=== PATIENT | female | born 1960 | race Caucasian/White ===

== ENCOUNTER → 2017-08-01 | Outpatient (CLI) | payer OTHER ==
--- NOTE | 2017-08-01 12:11 | MM ---
Reason for exam: clinical finding. Last mammogram was performed 4 years and 3 months ago. History: Patient had first child at age 39. Indicated problem(s): pain in the left breast. Physical Findings: Nurse did not find any significant physical abnormalities on exam. MG 3D Diag Mammo W/Cad TANYA Bilateral CC and MLO view(s) were taken. LM view(s) were taken of the left breast. Prior study comparison: May 16, 2013, bilateral digital screening mammo w/CAD. December 21, 2011, bilateral digital screening mammo w/CAD. The breast tissue is heterogeneously dense. This may lower the sensitivity of mammography. Focal asymmetry right posterior upper outer quadrant appears similar on the CC view but slightly more pronounced on MLO view. On spot views, the area partially disperses. Dense tissue is suspected. Ultrasound recommended. These results were verbally communicated with the patient and result sheet given to the patient on 08/01/17. ASSESSMENT: Incomplete: need additional imaging evaluation, BI-RAD 0 RECOMMENDATION: Ultrasound of the right breast. (upper outer quadrant)
--- NOTE | 2017-08-01 12:13 | USB ---
Reason for exam: additional evaluation requested from abnormal screening. History: Patient had first child at age 39. US Breast Limited RT Right breast ultrasound demonstrates no cystic or solid lesion seen. Precautionary 6 month follow up mammogram recommended. These results were verbally communicated with the patient and result sheet given to the patient on 08/01/17. ASSESSMENT: Probably benign, BI-RAD 3 RECOMMENDATION: Follow-up diagnostic mammogram of the right breast in 6 months. Manage on a clinical basis with regard to left arm pain.
== END ==
LOC: RADMAMWWP 10:15
PROVIDERS: ATTEND Obstetrics & Gynecology
DX: R92.8 Other abnormal and inconclusive findings on diagnostic imaging of breast (principal); N64.4 Mastodynia
CPT/HCPCS: 77066; 76642; G0279

== ENCOUNTER → 2018-08-27 | Outpatient (CLI) | payer OTHER, MEDICARE ==
--- NOTE | 2018-08-27 11:10 | XR ---
EXAMINATION TYPE: XR chest 2V DATE OF EXAM: 08/27/2018 COMPARISON: NONE HISTORY: Shortness of breath TECHNIQUE: Frontal and lateral views of the chest are obtained. FINDINGS: Scattered senescent parenchymal changes noted. Hyperinflation compatible with COPD. No evidence for infiltrate. No evidence for atelectasis. Heart size is stable. Mediastinal structures are stable and grossly unremarkable. No evidence for hilar prominence. Degenerative changes dorsal spine. IMPRESSION: 1. No evidence for acute pulmonary disease.
--- NOTE | 2018-08-27 11:11 | XR ---
EXAMINATION TYPE: XR shoulder complete RT DATE OF EXAM: 08/27/2018 CLINICAL HISTORY: pain TECHNIQUE: Three views of the right shoulder are obtained. COMPARISON: None FINDINGS: There is no acute fracture/dislocation evident. The acromioclavicular and glenohumeral jelani int spaces appear within normal limits. The visualized ribs are intact and unremarkable. IMPRESSION: 1. There is no acute fracture or dislocation. ICD 10 NO FRACTURE, INITIAL EVALUATION
== END | disposition home or self-care (01) ==
LOC: RADXRMAIN 10:42
PROVIDERS: ATTEND Family Medicine
DX: R05 Cough (principal); M25.511 Pain in right shoulder
CPT/HCPCS: 71046

== ENCOUNTER → 2020-05-07 | Outpatient (CLI) | payer MEDICARE, OTHER ==
--- NOTE | 2020-05-07 12:38 | MR ---
EXAMINATION TYPE: MR shoulder RT wo con DATE OF EXAM: 05/07/2020 COMPARISON: Outside right shoulder x-ray April 09, 2020 HISTORY: Rt shoulder pain TECHNIQUE: Multiplanar, multisequence imaging of the right shoulder is performed without contrast. FINDINGS: Rotator Cuff: Complete full-thickness retracted tear distal supraspinatus tendon to level of acromioc lavicular joint coronal image 14. Complete full thickness retracted tear of the infraspinatus tendon to level of the distal clavicle, coronal image 19. Subscapularis tendon felt intact with abnormal inc reased signal and surrounding fluid axial image 13 for reference, abnormal thickening is present. The re is severe fat replaced atrophy of the supraspinatus and infraspinatus tendons. . Complete full-th ickness retracted tear of the teres minor is felt present. Moderate to severe muscular atrophy. Acromioclavicular Joint: Moderate narrowing and capsular hypertrophy, loss of inferior fat plane at d istal clavicle level. Distal acromion morphology unremarkable Glenohumeral Joint: High riding humeral head with moderate medial narrowing. Small spurs medially cor onal image 12. Small to moderate-sized joint effusion. Labrum: The superior labrum is blunted with abnormal signal, degenerative tear is present. Biceps Tendon: The long head of biceps is in normal location within bicipital groove. Intracapsular p ortion not well seen. Bone marrow signal: Some focal edema in the acromion. Other: No additional significant abnormality is appreciated. IMPRESSION: Complete full-thickness retracted tears of the supraspinatus and infraspinatus and teres minor tendons with moderate to severe muscular atrophy suggesting chronic in age. High riding humeral head noted. Other findings as detailed above.
== END | disposition home or self-care (01) ==
LOC: RADMRIMAIN 11:01
PROVIDERS: ATTEND Orthopaedic Surgery
DX: M75.121 Complete rotator cuff tear or rupture of right shoulder, not specified as traumatic (principal); M25.811 Other specified joint disorders, right shoulder; M62.511 Muscle wasting and atrophy, not elsewhere classified, right shoulder; M89.311 Hypertrophy of bone, right shoulder; M25.711 Osteophyte, right shoulder; M25.411 Effusion, right shoulder; R93.7 Abnormal findings on diagnostic imaging of other parts of musculoskeletal system

== ENCOUNTER → 2020-06-12 | Outpatient (CLI) | payer MEDICARE, OTHER ==
--- NOTE | 2020-06-16 09:19 | MM ---
Reason for exam: screening (asymptomatic). Last mammogram was performed 2 years and 10 months ago. History: Patient is postmenopausal and had first child at age 39. Physical Findings: A clinical breast exam by your physician is recommended on an annual basis and results should be correlated with mammographic findings. MG 3D Screening Mammo W/Cad Bilateral CC and MLO view(s) were taken. Prior study comparison: August 01, 2017, bilateral MG 3d diag mammo w/cad TANYA. May 16, 2013, bilateral digital screening mammo w/CAD. The breast tissue is heterogeneously dense. This may lower the sensitivity of mammography. No significant changes when compared with prior studies. ASSESSMENT: Benign, BI-RAD 2 RECOMMENDATION: Routine screening mammogram of both breasts in 1 year.
== END | disposition home or self-care (01) ==
LOC: RADMAMWWP 13:33
PROVIDERS: ATTEND Family Medicine
DX: Z12.31 Encounter for screening mammogram for malignant neoplasm of breast (principal)
CPT/HCPCS: 77063; 77067

== ENCOUNTER → 2020-09-17 | Outpatient (CLI) | payer MEDICARE, OTHER ==
--- NOTE | 2020-09-17 19:48 | CT ---
EXAMINATION TYPE: CT brain wo con DATE OF EXAM: 09/17/2020 HISTORY: syncope, dizziness, falls CT DLP: 1107.20 mGycm. Automated Exposure Control for Dose Reduction was Utilized. TECHNIQUE: CT scan of the head is performed without contrast. COMPARISON: CT brain September 07, 2015. FINDINGS: There is no acute intracranial hemorrhage or midline shift identified. There is mild diff use ventricular and sulcal prominence consistent with diffuse age-related cerebral atrophy. There is mild low-attenuation in the periventricular white matter consistent with chronic small vessel ischem ic change. No suspicious opacification of mastoid air cells. Nasal septum remains deviated to right of midline. The globes are intact and the visualized sinuses are clear. IMPRESSION: No acute intracranial hemorrhage or midline shift. There is mild diffuse age-related ce rebral atrophy and chronic small vessel ischemic change now identified. Interval degenerative progres skye from prior CT.
== END | disposition home or self-care (01) ==
LOC: RADCTMAIN 18:19
PROVIDERS: ATTEND Family Medicine
DX: G31.9 Degenerative disease of nervous system, unspecified (principal); I67.82 Cerebral ischemia
CPT/HCPCS: 70450

== ENCOUNTER → 2020-10-01 | Outpatient (CLI) | payer MEDICARE, OTHER ==
--- NOTE | 2020-10-01 16:24 | US ---
EXAMINATION TYPE: US carotid duplex BILAT DATE OF EXAM: 10/01/2020 COMPARISON: NONE CLINICAL HISTORY: R29.6 Repeated Falls. EXAM MEASUREMENTS: RIGHT: Peak Systolic Velocity (PSV) cm/sec ----- Right CCA: 86.6 ----- Right ICA: 62.2 ----- Right ECA: 97.8 ICA/CCA ratio: 0.7 RIGHT: End Diastole cm/sec ----- Right CCA: 27.0 ----- Right ICA: 17.1 ----- Right ECA: 17.6 LEFT: Peak Systolic Velocity (PSV) cm/sec ----- Left CCA: 53.7 ----- Left ICA: 74.9 ----- Left ECA: 232.4 ICA/CCA ratio: 1.4 LEFT: End Diastole cm/sec ----- Left CCA: 12.0 ----- Left ICA: 16.7 ----- Left ECA: 28.8 VERTEBRALS (direction of flow): Right Vertebral: Antegrade Left Vertebral: Antegrade Rhythm: Normal Moderate amount of plaque visualized bilateral bulbs. Elevated velocities visualized left ECA IMPRESSION: 1. Atheromatous plaquing without significant flow-limiting stenosis within the internal carotid arter ies. 2. There is some notable stenosis within the left external carotid artery due to plaquing. Criteria for Assigning % of Stenosis / Diameter reduction (Estimation based on the indirect measurements of the internal carotid artery velocities (ICA PSV). 1. Normal (no stenosis)=ICA PSV < 125 cm/s: ratio < 2.0: ICA EDV<40 cm/s. 2. Less than 50% stenosis=ICA PSV < 125 cm/s: ratio < 2.0: ICA EDV<40 cm/s. 3. 50 to 69% stenosis=ICA PSV of 125 to 230 cm/s: ration 2.0 ? 4.0: ICA EDV 40-100 cm/s. 4. Greater than 70% stenosis to near occlusion= ICA PSV > 230 cm/s: ratio > 4.0: ICA EDV > 100 cm/s. 5. Near occlusion= ICA PSV velocities may be low or undetectable: variable ratio and ICA EDV. 6. Total occlusion=unable to detect flow.
== END | disposition home or self-care (01) ==
LOC: RADUSWWP 14:52
PROVIDERS: ATTEND Family Medicine
DX: I65.23 Occlusion and stenosis of bilateral carotid arteries (principal)
CPT/HCPCS: 93880

== ENCOUNTER → 2022-03-30 | Outpatient (CLI) | payer MEDICARE, OTHER ==
--- NOTE | 2022-03-30 12:07 | MR ---
EXAMINATION TYPE: MR lumbar spine wo con DATE OF EXAM: 03/30/2022 11:56 AM COMPARISON: None. CLINICAL INDICATION:Female, 61 years old with history of R54.15 lumbar radiculopathy; TECHNIQUE: Multi planar, multi sequence imaging was performed utilizing: T1-weighted, T2-weighted, a nd turbo inversion recovery imaging of the lumbar spine. IV Contrast: None. FINDINGS: Alignment: The lumbar vertebral bodies have preserved heights and alignment. Cord: The conus medullaris and the distal spinal cord appear unremarkable with regards to their signa l intensity and morphology. Bones/Discs: High T2/T1 signal vertebral body lesion in T12 lesion likely representing vertebral body hemangioma. Modic endplate changes most pronounced at L5-S1. Disc desiccation most pronounced at L5- S1. L1-L2: No evidence of significant spinal canal stenosis. Facet joint arthropathy moderate bilateral n eural foraminal stenosis. L2-L3: No evidence of significant spinal canal stenosis. Facet joint arthropathy moderate bilateral n eural foraminal stenosis. L3-L4: No evidence of significant spinal canal stenosis. Facet joint arthropathy moderate bilateral n eural foraminal stenosis. L4-L5: Disc bulge and facet joint arthropathy result in moderate to severe spinal canal and moderate to severe bilateral neural foraminal stenosis. L5-S1: Disc bulge and facet joint arthropathy result in mild spinal canal and moderate to severe bila teral neural foraminal stenosis. Other findings: None. IMPRESSION: 1. L4-L5 moderate to severe spinal canal stenosis secondary to combination disc bulging and facet ar thropathy. 2. L4-L5 and L5-S1 moderate to severe bilateral neural foraminal stenosis secondary to facet joint ar thropathy. 3. Multilevel disc degeneration with associated osteoarthritic changes,
== END | disposition home or self-care (01) ==
LOC: RADMRIMAIN 11:13
PROVIDERS: ATTEND Family Medicine
DX: M48.061 Spinal stenosis, lumbar region without neurogenic claudication (principal); M51.36 Other intervertebral disc degeneration, lumbar region; M47.27 Other spondylosis with radiculopathy, lumbosacral region
CPT/HCPCS: 72148

== ENCOUNTER → 2022-04-11 | Outpatient (CLI) | payer MEDICARE, OTHER ==
[2022-04-11 10:05] VITALS: BP 111/57; PULSE 83; RESP 14; TEMP 98.2
--- NOTE | 2022-04-11 15:00 | P.PAINPG ---
PQRS Measure Charge Sheet Comment: HISTORY OF PRESENT ILLNESS: 61 yr old female as a referral from Dr Jones presents today w severe and chronic LBP secondary to disc bulges, spinal stenosis and facet arthropathy without myelopathy for evaluation. Pt states pain level is at 9 /10 in intensity, constant, localized in the right aspect of the lumbar spine where it meets the tailbone, achy in character w shooting pain towards right include. Pain is provoked by twisting, bending, lifting. Pain is alleviated by medications (Corona 7.5/325, Lyrica 200 mg, Cymbalta 20 mg, Celebrex 200 mg), topicals, PT which she is currently in, chiropractic treatments in January 2022 without relief, massage therapy in January 2022 without relief, repositioning and rest. PMH: MDD, HTN, CTS PSH: L Bimalleolar ORIF (2016), Section, Cholecystectomy, Carpal Tunnel Release SH: Daily tobacco use, Occasional ETOH use, No illicit drug use FH: Non contributory All: NKDA Meds: See list REVIEW OF ORGAN SYSTEMS: CONSTITUTIONAL: No fevers or chills. No recent weight loss. NEUROLOGICAL: + numbness and tingling along the distal extremities. No seizure disorders or headaches. MUSCULOSKELETAL: + pain PSYCHIATRIC: Denies current depression or suicidal thoughts. Physical Examinations : Constitutional : Cooperative , not in acute distress . Neurologic : Cranial nerve II to XII intact. No focal neurological deficits. Psychiatric : alert & oriented x 3. Matching mood & appropriate affect. Judgment & insight intact. Musculoskeletal : Cervical Spine Motor strength in the deltoid and biceps: Normal right side. Normal Left side Motor strength biceps and the wrist extensors: Normal right side . Normal left side Motor strength in the triceps muscle: Normal right side. Normal left side Deep tendon reflexes: Normal at the biceps. Normal at Brachioradialis. Normal at triceps Vertebral body tenderness to deep palpation over Cervical facet loading test: positive bilaterally Spurling test: positive bilaterally Neck distraction test: positive bilaterally Ulices sign: positive bilaterally Lumbar spine Motor strength lower extremities ,thigh and legs 5/5 Right side , 5/5 Left side Deep tendon reflexes : Normal Knee Jerk. Normal Ankle Jerk Vertebral body tenderness over L5 Lumbar facet Loading Test: positive Right / positive Left Range of motion of the lumbar spine Flexion 30 degrees, extension 10 degrees Straight Leg Raise test: Left/ Right positive at degree Holly test: positive right / positive left. Severe tenderness over the Sacroiliac joint on the Right / Left sides Gaenslen test: positive bilaterally Seated flexion test: positive bilaterally. Sacral spine : Severe tenderness over the Sacroiliac joint: right side / left side Range of motion: Flexion of the lumbar spine <60 degrees Range of motion: Extension of the lumbar spine <20 degrees Gaenslen's Test positive Henry's Test positive Holly test: positive right side / left side Thigh Thrust Test Sacral Thrust Test Imaging: MRI without contrast of the lumbar spine from 03/30/22 reviewed Assessment/ Plan : Lumbar disc bulges, lumbar spinal stenosis Recommendation of VIVIAN L5-S1. And a series of injections, up to 3 within a six- month period, for optimal pain relief. Risks, benefits of procedure discussed and patient verbalized understanding. Admits to aspirin or anti- coagulant use or medical history of diabetes. Protocol for discontinuation/ continuation of medications shane procedure discussed. All questions answered. I have spent greater than 30 minutes on patient care today. Dr Augustin was available by phone for the evaluation of this patient. The time was used to review the medical records including relevant urine studies and Prescription history (MAPs), review of the available imaging, evaluation and examination of the patient, coordination of care with the medical staff and if applicable referring physicians, as well as creation of the medical record PQRS Narrative: Smoking Status Current every day smoker Home Medications: Ambulatory Orders HYDROcodone/APAP 7.5-325MG [Corona 7.5-325] 1 tab PO Q6H PRN 02/03/16 Aspirin 325 mg PO DAILY #30 tab 02/05/16 Docusate [Colace] 100 mg PO BID #60 capsule 02/05/16 HYDROcodone/APAP 7.5-325MG [Corona 7.5-325] 1 - 2 tab PO Q6HR PRN #60 tab 02/05/16 Celecoxib [CeleBREX] 200 mg PO DAILY 04/11/22 DULoxetine HCL 20 mg PO DAILY 04/11/22 Pregabalin 200 mg PO BID 04/11/22 lisinopriL [Zestril] 5 mg PO DAILY 04/11/22 Controlled Substance Measures - Controlled Substance Measures Is patient prescribed a controlled substance at discharge?: No
== END ==
LOC: PNWHC3 09:34
PROVIDERS: ATTEND Specialist
DX: M48.061 Spinal stenosis, lumbar region without neurogenic claudication (principal); M51.26 Other intervertebral disc displacement, lumbar region; Z79.82 Long term (current) use of aspirin; F17.200 Nicotine dependence, unspecified, uncomplicated
CPT/HCPCS: 99211

== ENCOUNTER → 2022-06-28 | Outpatient (CLI) | payer MEDICARE, OTHER | END | disposition home or self-care (01) | LOC: LABWHC1 13:12 | PROVIDERS: ATTEND Urology | DX: Z53.9 Procedure and treatment not carried out, unspecified reason (principal) ==

== ENCOUNTER 2022-07-05 11:45 | Day surgery (SDC) | payer MEDICARE, OTHER ==
[2022-07-05 12:15] VITALS: TEMP 96.7
[2022-07-05] MEDS ORDERED: LACTATED RINGERS 1,000 ML IV ONE (12:28)
[2022-07-05] MEDS ORDERED: ROPIVACAINE 5 MG/ML 20 ML AMPULE ONE (12:56)
[2022-07-05] MEDS ORDERED: MIDAZOLAM 2 MG/2 ML VIAL ONE (12:56)
[2022-07-05] MEDS ORDERED: methylPREDNISolone ACETATE 40 MG/ML 1 ML VIAL ONE (12:56)
[2022-07-05] MEDS ORDERED: fentaNYL (PF) 50 MCG/ML 2 ML AMP ONE (12:56)
--- NOTE | 2022-07-05 13:17 | P.PCN ---
Date of Procedure: 07/05/22 Procedure(s) Performed: PREOPERATIVE DIAGNOSIS : 1- Lumbar spondylosis with Facet Arthropathy without myelopathy . 2- Lumb Sedation is supposed at 13 or 2er degenerative disc disease POSTOPERATIVE DIAGNOSIS: 1- Lumbar spondylosis with Facet Arthropathy without myelopathy . 2- Lumber degenerative disc disease PROCEDURE: Diagnostic bilateral L3 , L4 , and L5 medial branch block under fluoroscopy guidance(fluoroscopy images available in the radiology Department ) ( To target the facet joint between bilateral L4-5 , and L5-S1 ) ANESTHESIA:,moderate sedation with intravenous Versed 2 mg and Fentanyl 50 mcg., sedation start at 1302 , end at 1314 EBL: Minimal COMPLICATION: None PROCEDURE INDICATION: Chronic low back pain secondary to Facet arthropathy unresponsive to conservative treatment. PROCEDURE DESCRIPTION: the patient was seen and identified in the preop holding area , risks and benefits and possible complications of the procedure and alternative were discussed with the patient, and the patient agreed to proceed with the procedure and signed the consent and vital signs monitored during the procedure and fluoroscopy was used to maximize the benefit and accuracy of the needle placement, and sedation was given to decrease patient anxiety, patient was taken to the procedure room and placed in prone position vital signs monitored in the back prepped with chlorhexidine X3 then under strict sterile technique using a right oblique fluoroscopy ,the junction of the transverse process and the superior articulating process of the right L3 , L4 , and L5 vertebra which corresponding to the fluoroscopy image of the eye of the [place] dog on the block side for the medial branches and subsequently , after local infiltration of skin and subcu tissuies with Ropivacaine 0.5 % , one mL at each level ,then 22-gauge Quincke-type needles , 3 needle was used , each one of them placed at the junction of the base of the transverse process and the superior articular process at the appropriate level, and the needle was advanced until the periosteum contacted, needle placement confirmed with AP oblique and lateral view and after appropriate needle placement confirmed, and after negative aspiration for heme and CSF and there was no paresthesia 1-1/2 mL of Ropivacaine 0.5% mixed with 20 mg Depo-Medrol , then half mL injected at each level after negative aspiration the needle subsequently removed and the same procedure repeated for the left side at left side at L3 , L4 and L5 levels. At the end of the procedure and the needles removed and a bandage applied after the skin was cleaned the cleaning solution patient taken to recovery room in stable condition and monitors in the recovery room for 20-30 minutes and discharged home in stable condition after discharge criteria met and patient will follow up with the pain clinic in 2-4 weeks
[2022-07-05] MEDS ORDERED: IV FLUID CONTINUATION 750 ML IV ONE (13:20)
--- NOTE | 2022-07-05 13:30 | FL ---
Intraoperative/procedural fluoroscopic services were provided for bilateral lumbar facet block. Total fluoroscopy time is 10 seconds with a total of 4 submitted images to PACS. Total DAP [id number]. Please see the operative note for further details.
[2022-07-05 13:32] VITALS: RESP 16
[2022-07-05 13:49] VITALS: BP 149/74; PULSE 81
== END 2022-07-05 13:59 | disposition home or self-care (01) ==
LOC: ORPAIN 11:45
PROVIDERS: ATTEND Specialist
DX: M51.36 Other intervertebral disc degeneration, lumbar region (principal); M47.816 Spondylosis without myelopathy or radiculopathy, lumbar region; G89.29 Other chronic pain
CPT/HCPCS: 99152; 64494 ×2; 64493; J2250; J1030; J3010; J2795

== ENCOUNTER → 2022-07-20 | Outpatient (CLI) | payer MEDICARE, OTHER ==
[2022-07-20 15:29] VITALS: BP 163/100; PULSE 85; RESP 18
--- NOTE | 2022-07-20 15:51 | P.PAINPG ---
PQRS Measure Charge Sheet Comment: A 62 yr old female with a history of severe and chronic LBP secondary to lumbar DDD and spondylosis with facet arthropathy without myelopathy presents today for evaluation s/p BL facet block of the medial branches L4- L5, L5-S1 #1. Pt states she experienced 80% pain relief x 2 hrs s/p procedure. Pain level is provoked at 9 /10 in intensity, constant, localized in the lumbar spine, sharp in character w shooting towards the R buttock and RLE. Pain is provoked by twisting, bending, lifting. Pain is alleviated by medications ([place]wood 7.5/325, Lyrica 200 mg, Cymbalta 20 mg, Celebrex 200 mg), topicals, PT x 12 wks from Mar 2022, injections, chiropractic treatments weekly in January 2022 without relief, massage therapy in January 2022 without relief, repositioning and rest. Interventional pain procedures completed include BL MBB L3-L5 x1, VIVIAN L5-S1 x1 Patient is currently on [place] 7.5/325, Lyrica 200 mg, Cymbalta 20 mg, Celebrex 200 mg Patient denies any side effects of the medication(s), denies excessive drowsiness or sleepiness, denies suicidal ideation and reports that the current pain medication is helping to control the pain and improve activities of daily living. Patient denies any motor or sensory deficits. Patient denies any fever or night sweats, denies any change in the bowel movements or urination. Physical Examination: -Constitutional: Cooperative. Not in acute distress . - Neurologic: Cranial nerve II to XII intact. No focal neurological deficits. - Psychatric: Alert & oriented x 3. Matching mood & appropriate affect. Judgment and insight intact. - Musculoskeletal: Cervical spine: Muscle bulk/ tone/ strength in the bilateral upper extremities normal Vertebral body tenderness to palpation over Spurling test positive Distraction test positive Facet loading test positive TTP Thoracic spine Muscle bulk / tone/ strength in the bilateral paraspinal muscles normal Vertebral body tender to palpation over Facet loading test positive TTP Lumbar spine: Motor bulk/ tone/ strength lower extremities , thigh and legs : 5/5 Deep tendon reflexes : Normal Knee Jerk. Normal Ankle Jerk . Vertebral body tenderness to palpation over Lumbar Facet Loading Test positive TTP over BL L4-L5, L5-S1 facets, R> L Straight Leg Raise: positive at 30 degrees right side/ left side Gaenslen's Test positive Sacral spine : Severe tenderness over the Sacroiliac joint: right side / left side Range of motion: Flexion of the lumbar spine <60 degrees Range of motion: Extension of the lumbar spine <20 degrees Gaenslen's Test positive right side / left side Holly test: positive right side / left side Thigh Thrust Test positive right side / left side Sacral Thrust Test positive right side / left side Assessment and plan: Chronic LBP secondary to lumbar DDD, spondylosis with facet arthropathy without myelopathy Recommendation of BL MBB L4-L5, L5-S1 #2. May need a series of injections, up until RFA, for optimal pain relief. Risks, benefits of procedure discussed and pt verbalized understanding. Admits to anticoagulant use or medical history of diabetes. Protocol for discontinuation/ continuation of medications shane procedure discussed. All questions answered. I have spent less than 30 minutes on patient care today. Dr Augustin was available by phone for the evaluation of this patient. The time was used to review the medical records including relevant urine studies and Prescription history (MAPs), review of the available imaging, evaluation and examination of the patient, coordination of care with the medical staff and if applicable referring physicians, as well as creation of the medical record PQRS Narrative: Smoking Status Current every day smoker Hx Alcohol Use (MH) No Home Medications: Ambulatory Orders Celecoxib [CeleBREX] 200 mg PO HS 04/11/22 DULoxetine HCL 60 mg PO QAM 04/11/22 Pregabalin 200 mg PO BID 04/11/22 lisinopriL [Zestril] 10 mg PO QAM 04/11/22 buPROPion HCL [buPROPion HCL SR] 100 mg PO BID 05/24/22 Controlled Substance Measures - Controlled Substance Measures Is patient prescribed a controlled substance at discharge?: No
== END ==
LOC: PNWHC3 14:17
PROVIDERS: ATTEND Specialist
DX: M51.36 Other intervertebral disc degeneration, lumbar region (principal); M47.816 Spondylosis without myelopathy or radiculopathy, lumbar region; G89.29 Other chronic pain; F17.200 Nicotine dependence, unspecified, uncomplicated
CPT/HCPCS: 99211

== ENCOUNTER 2022-08-16 11:15 | Day surgery (SDC) | payer MEDICARE, OTHER ==
[2022-08-10 15:28] VITALS: BMI 28.3
[~2022-08-16 11:15] MED LIST: LACTATED RINGERS 1,000 ML IV SCH; LIDOCAINE 1% (10MG/ML) FOR IV START INTRADERMA PRN
[2022-08-16 12:00] VITALS: TEMP 97
[2022-08-16] MEDS ORDERED: MIDAZOLAM 2 MG/2 ML VIAL ONE (12:48)
[2022-08-16] MEDS ORDERED: methylPREDNISolone ACETATE 40 MG/ML 1 ML VIAL ONE (12:48)
[2022-08-16] MEDS ORDERED: ROPIVACAINE 5 MG/ML 20 ML AMPULE ONE (12:48)
[2022-08-16] MEDS ORDERED: fentaNYL (PF) 50 MCG/ML 2 ML AMP ONE (12:48)
--- NOTE | 2022-08-16 13:03 | P.PCN ---
Date of Procedure: 08/16/22 Procedure(s) Performed: PREOPERATIVE DIAGNOSIS : 1- Lumbar spondylosis with Facet Arthropathy without myelopathy . 2- Lumb Sedation is supposed at 13 or 2er degenerative disc disease POSTOPERATIVE DIAGNOSIS: 1- Lumbar spondylosis with Facet Arthropathy without myelopathy . 2- Lumber degenerative disc disease PROCEDURE: Diagnostic bilateral L3 , L4 , and L5 medial branch block under fluoroscopy guidance(fluoroscopy images available in the radiology Department ) ( To target the facet joint between bilateral L4-5 , and L5-S1 )#2nd ANESTHESIA:,moderate sedation with intravenous Versed 2 mg and Fentanyl 50 mcg., sedation start at 1250 , end at 1302 EBL: Minimal COMPLICATION: None PROCEDURE INDICATION: Chronic low back pain secondary to Facet arthropathy unresponsive to conservative treatment. PROCEDURE DESCRIPTION: the patient was seen and identified in the preop holding area , risks and benefits and possible complications of the procedure and alternative were discussed with the patient, and the patient agreed to proceed with the procedure and signed the consent and vital signs monitored during the procedure and fluoroscopy was used to maximize the benefit and accuracy of the needle placement, and sedation was given to decrease patient anxiety, patient was taken to the procedure room and placed in prone position vital signs monitored in the back prepped with chlorhexidine X3 then under strict sterile technique using a right oblique fluoroscopy ,the junction of the transverse process and the superior articulating process of the right L3 , L4 , and L5 vertebra which corresponding to the fluoroscopy image of the eye of the Marino dog on the block side for the medial branches and subsequently , after local infiltration of skin and subcu tissuies with Ropivacaine 0.5 % , one mL at each level ,then 22-gauge Quincke-type needles , 3 needle was used , each one of them placed at the junction of the base of the transverse process and the superior articular process at the appropriate level, and the needle was advanced until the periosteum contacted, needle placement confirmed with AP oblique and lateral view and after appropriate needle placement confirmed, and after negative aspiration for heme and CSF and there was no paresthesia 1-1/2 mL of Ropivacaine 0.5% mixed with 20 mg Depo-Medrol , then half mL injected at each level after negative aspiration the needle subsequently removed and the same procedure repeated for the left side at left side at L3 , L4 and L5 levels. At the end of the procedure and the needles removed and a bandage applied after the skin was cleaned the cleaning solution patient taken to recovery room in stable condition and monitors in the recovery room for 20-30 minutes and discharged home in stable condition after discharge criteria met and patient will follow up with the pain clinic in 2-4 weeks
[2022-08-16] MEDS ORDERED: IV FLUID CONTINUATION 700 ML IV ONE (13:06)
[2022-08-16 13:11] VITALS: RESP 18
--- NOTE | 2022-08-16 13:15 | FL ---
Fluoroscopy History: Lumbar facet block FLUORO TIME 19 SEC. DAP [id number]
[2022-08-16 13:39] VITALS: BP 132/77; PULSE 88
== END 2022-08-16 13:41 | disposition home or self-care (01) ==
LOC: ORPAIN 11:15
PROVIDERS: ATTEND Specialist
DX: M47.816 Spondylosis without myelopathy or radiculopathy, lumbar region (principal); M51.36 Other intervertebral disc degeneration, lumbar region; G89.29 Other chronic pain
CPT/HCPCS: 64493; 64494; J2250; J1030; J3010; J2795

== ENCOUNTER → 2022-09-07 | Outpatient (CLI) | payer MEDICARE, OTHER ==
--- NOTE | 2022-09-07 15:04 | P.PAINPG ---
PQRS Measure Charge Sheet Comment: A 62 yr old female with a history of severe and chronic LBP x 1 yr secondary to lumbar DDD and spondylosis with facet arthropathy without myelopathy presents today for evaluation s/p BL facet block of the medial branches L4-L5, L5-S1 #2. Pt states she experienced 90 % pain relief x 3 hrs s/p procedure. Pain level is provoked at 8/10 in intensity, constant, localized in the lumbar spine, sharp in character w shooting towards the RLE. Pain is provoked by walking/ bending/ lifting for periods of 15 min or more. Pain is alleviated with PT x 8 wks in Jan 2022, chiropractic treatments semi monthly til Mar 2022 when she was discontinued treatments, heat, medications, topical, repositioning, sitting and rest. Interventional pain procedures completed include BL MBB L3-L5 x2 Patient is currently on [place] Patient denies any side effects of the medication(s), denies excessive drowsiness or sleepiness, denies suicidal ideation and reports that the current pain medication is helping to control the pain and improve activities of daily living. Patient denies any motor or sensory deficits. Patient denies any fever or night sweats, denies any change in the bowel movements or urination. Physical Examination: -Constitutional: Cooperative. Not in acute distress . - Neurologic: Cranial nerve II to XII intact. No focal neurological deficits. - Psychatric: Alert & oriented x 3. Matching mood & appropriate affect. Judgment and insight intact. - Musculoskeletal: Cervical spine: Muscle bulk/ tone/ strength in the bilateral upper extremities normal Vertebral body tenderness to palpation over Spurling test positive Distraction test positive Facet loading test positive TTP Thoracic spine Muscle bulk / tone/ strength in the bilateral paraspinal muscles normal Vertebral body tender to palpation over Facet loading test positive TTP Lumbar spine: Motor bulk/ tone/ strength lower extremities , thigh and legs : 5/5 Deep tendon reflexes : Normal Knee Jerk. Normal Ankle Jerk . Vertebral body tenderness to palpation over Ryan Test positive Lumbar Facet Loading Test positive on BL L4-L5, L5-S1 Straight Leg Raise: positive at 30 degrees right side/ left side Gaenslen's Test positive Sacral spine : Severe tenderness over the Sacroiliac joint: right side / left side Range of motion: Flexion of the lumbar spine <60 degrees Range of motion: Extension of the lumbar spine <20 degrees Gaenslen's Test positive right side / left side Holly test: positive right side / left side Thigh Thrust Test positive right side / left side Sacral Thrust Test positive right side / left side Assessment and plan: Chronic LBP secondary to lumbar DDD, spondylosis with facet arthropathy without myelopathy Recommendation of BL RFA L4-L5, L5-S1. Pt exhibited sufficient and substantial pain relief w prior facet blocks of the medial branches. Risks, benefits of procedure discussed and pt verbalized understanding. Admits to anticoagulant use or medical history of diabetes. Protocol for discontinuation/ continuation of medications shane procedure discussed. Minimal anesthesia provided, if clinically indicated, consisting of Versed and Fentanyl. All questions answered. I have spent less than 30 minutes on patient care today. Dr Augustin was available by phone for the evaluation of this patient. The time was used to r eview the medical records including relevant urine studies and Prescription history (MAPs), review of the available imaging, evaluation and examination of the patient, coordination of care with the medical staff and if applicable referring physicians, as well as creation of the medical record PQRS Narrative: Smoking Status Current every day smoker Hx Alcohol Use (MH) No Home Medications: Ambulatory Orders Celecoxib [CeleBREX] 200 mg PO HS 04/11/22 DULoxetine HCL 60 mg PO QAM 04/11/22 Pregabalin 200 mg PO BID 04/11/22 lisinopriL [Zestril] 10 mg PO QAM 04/11/22 buPROPion HCL [buPROPion HCL SR] 100 mg PO BID 05/24/22 Controlled Substance Measures - Controlled Substance Measures Is patient prescribed a controlled substance at discharge?: No
[2022-09-07 15:05] VITALS: BP 177/84; RESP 18; TEMP 97.6
== END ==
LOC: PNWHC3 12:31
PROVIDERS: ATTEND Specialist
DX: M51.37 Other intervertebral disc degeneration, lumbosacral region (principal); M47.817 Spondylosis without myelopathy or radiculopathy, lumbosacral region; G89.29 Other chronic pain; F17.200 Nicotine dependence, unspecified, uncomplicated
CPT/HCPCS: 99211

== ENCOUNTER → 2022-09-15 | Outpatient (CLI) | payer MEDICARE, OTHER ==
--- NOTE | 2022-09-16 19:18 | MM ---
Reason for Exam: Screening (asymptomatic). Last mammogram was performed 2 year(s) and 3 month(s) ago. Patient History: Menarche at age 12. First Full-Term at age 39. Late child-bearing (after 30). Postmenopausal. Risk Values: Krystyna 5 year model risk: 2.2%. NCI Lifetime model risk: 9.1%. Prior Study Comparison: 05/16/2013 Bilateral Screening Mammogram, [facility]. 08/01/2017 Bilateral Diagnostic Mammogram, [facility]. 06/12/2020 Bilateral Screening Mammogram, [facility]. Tissue Density: The breast tissue is heterogeneously dense. This may lower the sensitivity of mammography. Findings: Analyzed By CAD. There is no suspicious group of microcalcifications or new suspicious mass in either breast. Overall Assessment: Negative, BI-RAD 1 Management: Screening Mammogram of both breasts in 1 year. . Patient should continue monthly self-breast exams. A clinical breast exam by your physician is recommended on an annual basis. This exam should not preclude additional follow-up of suspicious palpable abnormalities. Note on Krystyna scores and lifetime risk: 1. A Krystyna score greater than 3% is considered moderate risk. If this is the case, consider specialist referral to assess eligibility for a risk reducing agent. 2. If overall lifetime risk for the development of breast cancer is 20% or higher, the patient may qualify for future screening with alternating mammogram and breast MRI. Electronically signed and approved by: Aruna Rodriguez M.D. Radiologist
== END | disposition home or self-care (01) ==
LOC: RADMAMWWP 15:22
PROVIDERS: ATTEND Family Medicine
DX: Z12.31 Encounter for screening mammogram for malignant neoplasm of breast (principal); Z78.0 Asymptomatic menopausal state
CPT/HCPCS: 77063; 77067

== ENCOUNTER → 2022-09-16 | Day surgery (SDC) | payer MEDICARE, OTHER ==
[~2022-09-16] MED LIST changes: +LACTATED RINGERS 1,000 ML IV ONE; +MIDAZOLAM 2 MG/2 ML VIAL ONE; +ROPIVACAINE 5 MG/ML 20 ML AMPULE ONE; +fentaNYL (PF) 50 MCG/ML 2 ML AMP ONE; +methylPREDNISolone ACETATE 40 MG/ML 1 ML VIAL ONE
[2022-09-16 08:59] VITALS: RESP 16; TEMP 97.8
--- NOTE | 2022-09-16 09:51 | P.PCN ---
Date of Procedure: 09/16/22 Procedure(s) Performed: PREOPERATIVE DIAGNOSIS: 1-Lumbar Spondylosis with Facet Arthropathy without myelopathy. 2- Lumber degenerative disc disease. POSTOPERATIVE DIAGNOSIS: 1- Lumbar Spondylosis with Facet Arthropathy without myelopathy. 2- Lumber degenerative disc disease. PROCEDURES : Bilateral Radiofrequency thermocoagulation, L3 , L4 , and L5 medial branch, with fluoroscopic guidance (fluoroscopy images available in the radiology department) ( to denervate the facet joint at bilateral L4-5 ,and L5- S1 levels ). ANESTHESIA: Monitored anesthesia care as per anesthesia department . EBL: Minimal PROCEDURE INDICATION: The patient with low back pain secondary to lumbar facet arthropathy who had more than 80% relief of her pain with previous diagnostic lumbar medial branch block with bupivacaine. PROCEDURE DESCRIPTION / TECHNIQUE: The patient was seen and identified in the preoperative area. Risks, benefits, complications, including but not limited to risk of infection ,bleeding , allergic reactions to the medications and no complete pain releife , and alternatives were discussed with the patient, the patient agreed to proceed with the procedure and signed the consent. IV was started. Vital signs remained stable throughout the procedure. Patient was taken to the OR and time out was completed. The patient was placed in the prone position on the procedure table. The lumber area was prepped and draped in the usual sterile fashion. . Vital signs were closely monitored during the procedure .IV sedation was used during the procedure to decrease patients anxiety. Using AP and then oblique fluoroscopy, the ``eye of the Marino dog corresponding to the connection between the superior and transverse articular processes of right L3, L4, and L5 were identified, marked, and localized with 1% lidocaine. Subsequently, a 18 -tf radiofrequency cannula with a 10- mm active tip was advanced guided by fluoroscopy to each of the``eyes of the Marino dog at right L3, L4, and L5. Each site then underwent sensory testing at 50 Hz and 0 to 1 volt and motor testing at 2.5 Hz and 0 to 3 volt with local stimulation, but no radicular symptoms down the legs. Thereafter each sites underwent radiofrequency thermocoagulation at 80 degrees celsius for 90 seconds after injecting 0.5 ml of PF Ropivacaine 1ml, then after the thermocoagulation done , 1 ml of the block solution containing Depo-Medrol 20 mg and 3 ml of Ropivacaine 0.5% was injected at the right L3 , L4 , and L5 , levels after negative aspiration of CSF and blood and with no paresthesias. Cannulas were retracted while injecting lidocaine 1% until the needle is out. The same procedure was repeated at the level of Left L3, L4, and L5 levels. At the end of the procedure, the skin was cleansed and bandages were applied. COMPLICATIONS: No acute complications. DISPOSITION / PLANS: The patient was placed in a supine position and transferred to the recovery area in a stable condition for observation and was discharged from the recovery room after meeting discharge criteria. Home discharge instructions given to the patient by the staff. The patient was reexamined prior to discharge. The patient will schedule a follow up in the clin ic in 2-4 weeks.
--- NOTE | 2022-09-16 10:09 | FL ---
EXAMINATION TYPE: FL guided pain mgmt statistic DATE OF EXAM: 09/16/2022 CLINICAL HISTORY: Low back pain. TECHNIQUE: Fluoroscopy. COMPARISON: None. FINDINGS: Fluoroscopic guidance was provided during pain relief procedure performed by Dr. Augustin . A total of 36 seconds of fluoroscopic time was utilized during the procedure and a spot images are acquired. Images acquired shows needle localization at several levels in the lumbar spine. IMPRESSION: As Above. 0.14076 MGYM2 total DAP
[2022-09-16 10:19] VITALS: BP 144/78; PULSE 84
== END ==
LOC: ORPAIN 08:32
PROVIDERS: ATTEND Specialist
DX: M51.36 Other intervertebral disc degeneration, lumbar region (principal); M47.816 Spondylosis without myelopathy or radiculopathy, lumbar region; I10 Essential (primary) hypertension; F17.210 Nicotine dependence, cigarettes, uncomplicated; Z79.899 Other long term (current) drug therapy
CPT/HCPCS: 64635; 64636 ×2; J2250; J1030; J3010; J2795

== ENCOUNTER → 2022-10-05 | Outpatient (CLI) | payer MEDICARE, OTHER ==
--- NOTE | 2022-10-05 16:04 | US ---
EXAMINATION TYPE: US arterial LE single level DATE OF EXAM: 10/05/2022 10:10 AM CLINICAL INDICATION: Female, 62 years old with history of I73.9 PERIPHERAL VASCULAR DISEASE, UNSPECIF IED; Pain in both legs and feet x 8 weeks, worse on the right. Thickened toenails. History of: Smoker: Yes Hypertension: No Diabetic: No Hyperlipidemia: No TIA/CVA: No Previous Vascular Surgery: No CAD: No [place]: No Vascular Ulcers: No Claudication: No Gangrene: No Doppler Waveforms: Right: Triphasic waveforms are within the popliteal posterior tibial and dorsalis pedis arteries. Bip hasic waveforms appear to be within the right digit. Left: Triphasic waveforms are present within the popliteal posterior tibial and dorsalis pedis arteri es. Monophasic waveforms are within the left digit. Right Brachial Pressure: 160 Left Brachial Pressure: 150 Ankle-Brachial Indices: Right: 1.02 Left: 1.03 Toe Brachial Indices: Right: 0.48 Left: 0.63 IMPRESSION: 1. There appears to be severe stenosis in the distal lower extremity arterial system at the great toe digits bilaterally right
--- NOTE | 2022-10-05 16:26 | US ---
EXAMINATION TYPE: US venous doppler duplex LE DATE OF EXAM: 10/05/2022 9:33 AM COMPARISON: NONE CLINICAL INDICATION: Female, 62 years old with history of I73.9 PERIPHERAL VASCULAR DISEASE, UNSPECIF IED; Pain in both legs x 8 weeks. No hx of DVT. Patient does not take blood thinners. SIDE PERFORMED: Bilateral TECHNIQUE: The lower extremity deep venous system is examined utilizing real time linear array sonog [place] with graded compression, doppler sonography and color-flow sonography. VESSELS IMAGED: Common Femoral Vein Deep Femoral Vein Greater Saphenous Vein * Femoral Vein Popliteal Vein Small Saphenous Vein * Proximal Calf Veins (* superficial vessels) Right Leg: No evidence of DVT Left Leg: No evidence of DVT IMPRESSION: 1. Bilateral lower extremity ultrasound negative for deep venous thrombosis.
== END | disposition home or self-care (01) ==
LOC: RADUSWWP 09:03
PROVIDERS: ATTEND Family Medicine
DX: I70.203 Unspecified atherosclerosis of native arteries of extremities, bilateral legs (principal); F17.210 Nicotine dependence, cigarettes, uncomplicated
CPT/HCPCS: 93922; 93970

== ENCOUNTER → 2022-10-11 | Outpatient (CLI) | payer MEDICARE, OTHER ==
--- NOTE | 2022-10-11 16:05 | MR ---
EXAMINATION TYPE: MR cervical spine wo con DATE OF EXAM: 10/11/2022 INDICATION: Patient age: Female; 62 years old; Reason for study: M47.812; COMPARISON: None. TECHNIQUE: Multi planar, multi sequence imaging was performed utilizing: T1-weighted, T2-weighted, an d turbo inversion recovery imaging of the cervical spine. IV Contrast: cc None FINDINGS: Alignment: The cervical vertebral bodies have preserved heights. Alignment is within normal limits gi antonieta patient positioning. Bones: Multilevel degeneration changes with osteophyte formation disc space narrowing and facet joint arthropathy. No abnormal bone marrow edema on inversion recovery sequences Cord: Increased cord signal at C4-C5 and to the superior end plate of C6 Discs: Multilevel disc desiccation is present. C2-C3: A disc osteophyte complex is present with mild spinal canal stenosis. Bilateral facet and unc overtebral joint arthropathy are present with mild bilateral neural foraminal stenosis. C3-C4: A disc osteophyte complex is present with mild spinal canal stenosis. Bilateral facet and unc overtebral joint arthropathy are present with moderate right and mild to moderate left neural foramin al stenosis. C4-C5: A disc osteophyte complex is present with severe spinal canal stenosis. Bilateral facet and u ncovertebral joint arthropathy are present with moderate to severe bilateral neural foraminal stenosi s. C5-C6: A disc osteophyte complex is present with moderate to severe spinal canal stenosis. Bilateral facet and uncovertebral joint arthropathy are present with moderate to severe right moderate and mil d left neural foraminal stenosis. C6-C7: A disc osteophyte complex is present with mild to moderate spinal canal stenosis. Bilateral f acet and uncovertebral joint arthropathy are present with moderate right and moderate to severe left neural foraminal stenosis. C7-T1: No significant disc pathology. The spinal canal is patent. Bilateral facet and uncovertebral joint arthropathy are present with moderate to severe left and moderate right neural foraminal stenos is. Other: None. IMPRESSION: 1. Severe degeneration changes with severe C4-C5 and moderate to severe C5-C6 spinal canal is stenos is with increased cord signal. The cord appears small in caliber favoring chronic etiology. 2. Mild degeneration changes with multilevel high-grade neural foraminal stenosis.
== END ==
LOC: RADMRIMAIN 13:15
PROVIDERS: ATTEND Orthopaedic Surgery
DX: M47.22 Other spondylosis with radiculopathy, cervical region (principal); M99.71 Connective tissue and disc stenosis of intervertebral foramina of cervical region
CPT/HCPCS: 72141

== ENCOUNTER → 2022-10-12 | Outpatient (CLI) | payer MEDICARE, OTHER ==
--- NOTE | 2022-10-12 13:32 | P.PAINPG ---
PQRS Measure Charge Sheet Comment: A 62 yr old female with a history of severe and chronic LBP secondary to lumbar DDD and spondylosis with facet arthropathy without myelopathy presents today for evaluation s/p BL RFA L3-L5. Pt states she experienced 50 % pain relief x 1 day s/p procedure. Pain level is provoked at 9/10 in intensity, constant, localized in the R lumbar spine, sharp, stabbing in character w shooting towards the R glute and R thigh. Pain is provoked by twisting, walking for periods of 10 min or more. Pain is alleviated with PT x 6 wks in Feb 2022, use of a wheelchair for ambulatory assistance, medications, repositioning and rest. Interventional pain procedures completed include BL RFA L3-L5 (August 2022), VIVIAN L5-S1 x1 Patient is currently on [place] Patient denies any side effects of the medication(s), denies excessive drowsiness or sleepiness, denies suicidal ideation and reports that the current pain medication is helping to control the pain and improve activities of daily living. Patient denies any motor or sensory deficits. Patient denies any fever or night sweats, denies any change in the bowel movements or urination. Physical Examination: -Constitutional: Cooperative. Not in acute distress . - Neurologic: Cranial nerve II to XII intact. No focal neurological deficits. - Psychatric: Alert & oriented x 3. Matching mood & appropriate affect. Judgment and insight intact. - Musculoskeletal: Cervical spine: Muscle bulk/ tone/ strength in the bilateral upper extremities normal Vertebral body tenderness to palpation over Spurling test positive Distraction test positive Facet loading test positive TTP Thoracic spine Muscle bulk / tone/ strength in the bilateral paraspinal muscles normal Vertebral body tender to palpation over Facet loading test positive TTP Lumbar spine: Motor bulk/ tone/ strength lower extremities , thigh and legs : 5/5 Deep tendon reflexes : Normal Knee Jerk. Normal Ankle Jerk . Vertebral body tenderness to palpation over Ryan Test positive Lumbar Facet Loading Test positive Straight Leg Raise: positive at 30 degrees right side/ left side Gaenslen's Test positive Sacral spine : Severe tenderness over the Sacroiliac joint: right side / left side Range of motion: Flexion of the lumbar spine <60 degrees Range of motion: Extension of the lumbar spine <20 degrees Gaenslen's Test positive right side / left side Holly test: positive right side / left side Thigh Thrust Test positive right side / left side Sacral Thrust Test positive right side / left side Assessment and plan: Chronic LBP secondary to lumbar DDD, spondylosis with facet arthropathy without myelopathy Recommendation of behavioral health eval for SCS Trial Dx : G89.4, M 54.16. Video viewed. Risks, benefits of procedure discussed and pt verbalized understanding. Admits to anticoagulant use or medical history of diabetes. Protocol for discontinuation/ continuation of medications shane procedure discussed. Minimal anesthesia provided, if clinically indicated, consisting of Versed and Fentanyl. All questions answered. I have spent less than 30 minutes on patient care today. Dr Augustin was available by phone for the evaluation of this patient. The time was used to review the medical records including relevant urine studies and Prescription history (MAPs), review of the available imaging, evaluation and examination of the patient, coordination of care with the medical staff and if applicable referring physicians, as well as creation of the medical record PQRS Narrative: Smoking Status Current every day smoker Hx Alcohol Use (MH) No Home Medications: Ambulatory Orders DULoxetine HCL 60 mg PO QAM 04/11/22 Pregabalin 200 mg PO BID 04/11/22 lisinopriL [Zestril] 10 mg PO QAM 04/11/22 buPROPion HCL [buPROPion HCL SR] 100 mg PO BID 05/24/22 Controlled Substance Measures - Controlled Substance Measures Is patient prescribed a controlled substance at discharge?: No
[2022-10-12 14:39] VITALS: BP 127/98; PULSE 86; RESP 18; TEMP 98.3
== END ==
LOC: PNWHC3 12:24
PROVIDERS: ATTEND Specialist
DX: M51.36 Other intervertebral disc degeneration, lumbar region (principal); M47.816 Spondylosis without myelopathy or radiculopathy, lumbar region; G89.29 Other chronic pain; F17.200 Nicotine dependence, unspecified, uncomplicated
CPT/HCPCS: 99211

== ENCOUNTER → 2022-11-09 | Outpatient (CLI) | payer MEDICARE, OTHER ==
[2022-11-09 13:57] VITALS: BP 154/74; PULSE 79; RESP 16; TEMP 98
--- NOTE | 2022-11-09 15:32 | P.PAINPG ---
PQRS Measure Charge Sheet Comment: A 62 yr old wheelchair bound female with a history of severe and chronic neck pain x 10 mo secondary to cervical DDD and spondylosis with facet arthropathy without myelopathy presents today for evaluation s/p imaging results. Pt refuses cervical surgery. She has not followed up w the proper channels to go forward with SCS trial also. Pain level is provoked at 7/10 in intensity, constant, localized in the lower cervical spine, sharp, stabbing in character w shooting towards the BUEs. Pain is provoked by lifting. Pain is alleviated with PT x 6 wks in Feb 2022, use of a wheelchair for ambulatory assistance, medications, repositioning and rest. Interventional pain procedures completed include BL RFA L3-L5 (August 2022), VIVIAN L5-S1 x1 Patient is currently on [place] Patient denies any side effects of the medication(s), denies excessive drowsiness or sleepiness, denies suicidal ideation and reports that the current pain medication is helping to control the pain and improve activities of daily living. Patient denies any motor or sensory deficits. Patient denies any fever or night sweats, denies any change in the bowel movements or urination. Physical Examination: -Constitutional: Cooperative. Not in acute distress . - Neurologic: Cranial nerve II to XII intact. No focal neurological deficits. - Psychatric: Alert & oriented x 3. Matching mood & appropriate affect. Judgment and insight intact. - Musculoskeletal: Cervical spine: Muscle bulk/ tone/ strength in the bilateral upper extremities normal Vertebral body tenderness to palpation over C4, C5, C6, C7 Spurling test positive Distraction test positive Facet loading test positive TTP Thoracic spine Muscle bulk / tone/ strength in the bilateral paraspinal muscles normal Vertebral body tender to palpation over Facet loading test positive TTP Lumbar spine: Motor bulk/ tone/ strength lower extremities , thigh and legs : 5/5 Deep tendon reflexes : Normal Knee Jerk. Normal Ankle Jerk . Vertebral body tenderness to palpation over Ryan Test positive Lumbar Facet Loading Test positive Straight Leg Raise: positive at 30 degrees right side/ left side Gaenslen's Test positive Sacral spine : Severe tenderness over the Sacroiliac joint: right side / left side Range of motion: Flexion of the lumbar spine <60 degrees Range of motion: Extension of the lumbar spine <20 degrees Gaenslen's Test positive right side / left side Holly test: positive right side / left side Thigh Thrust Test positive right side / left side Sacral Thrust Test positive right side / left side Assessment and plan: Chronic LBP secondary to lumbar DDD, spondylosis with facet arthropathy without myelopathy Pt stated she will follow up with an orthopedic surgeon to discuss additional treatment options. All questions answered. I have spent less than 30 minutes on patient care today. Dr Augustin was available by phone for the evaluation of this patient. The time was used to review the medical records including relevant urine studies and Prescription history (MAPs), review of the available imaging, evaluation and examination of the patient, coordination of care with the medical staff and if applicable referring physicians, as well as creation of the medical record PQRS Narrative: Smoking Status Current every day smoker Hx Alcohol Use (MH) No Home Medications: Ambulatory Orders DULoxetine HCL 60 mg PO QAM 04/11/22 Pregabalin 200 mg PO BID 04/11/22 lisinopriL [Zestril] 10 mg PO QAM 04/11/22 buPROPion HCL [buPROPion HCL SR] 100 mg PO BID 05/24/22 Controlled Substance Measures - Controlled Substance Measures Is patient prescribed a controlled substance at discharge?: No
== END ==
LOC: PNWHC3 13:13
PROVIDERS: ATTEND Specialist
DX: M54.50 Low back pain, unspecified (principal); M51.36 Other intervertebral disc degeneration, lumbar region; M47.816 Spondylosis without myelopathy or radiculopathy, lumbar region; G89.29 Other chronic pain; M50.321 Other cervical disc degeneration at C4-C5 level; M50.322 Other cervical disc degeneration at C5-C6 level; M50.323 Other cervical disc degeneration at C6-C7 level; F17.200 Nicotine dependence, unspecified, uncomplicated
CPT/HCPCS: 99211

== ENCOUNTER → 2023-02-28 | Outpatient (CLI) | payer MEDICARE ==
--- NOTE | 2023-03-01 08:40 | MR ---
EXAMINATION TYPE: MR lumbar spine wo con DATE OF EXAM: 02/28/2023 6:26 PM CLINICAL INDICATION:Female, 62 years old with history of M54.50 low back pain; Low back pain into rig ht leg COMPARISON: 03/30/2022 TECHNIQUE: Multi planar, multi sequence imaging was performed utilizing: T1-weighted, T2-weighted, a nd turbo inversion recovery imaging of the lumbar spine. IV Contrast: (None if empty) FINDINGS: Alignment: The lumbar vertebral bodies have preserved heights with grade 1 anterolisthesis of L4 on L 5. Cord: The conus medullaris and the distal spinal cord appear unremarkable with regards to their signa l intensity and morphology. Bones/Discs: Multilevel degeneration changes throughout the spine with Modic endplate changes disc sp michele narrowing, osteophytes and facet joint arthropathy. Scattered high T1/T2 signal probable vertebra l body hemangiomas versus focal fat. Mild reactive bony edema at T10-T11 adjoining endplates posterio rly.. T12-L1: No evidence of significant spinal canal stenosis or neural foraminal stenosis. L1-L2: No evidence of significant spinal canal stenosis or neural foraminal stenosis. L2-L3: Disc bulge and facet joint arthropathy result in mild spinal canal and mild to moderate bilate ral neural foraminal stenosis. L3-L4: Disc bulge and facet joint arthropathy result in mild spinal canal and moderate bilateral neur al foraminal stenosis. L4-L5: Disc bulge and facet joint arthropathy result in moderate to severe spinal canal and moderate to severe left and moderate right neural foraminal stenosis. Trace bilateral facet joint effusions. L5-S1: The disc is rounded posterior morphology without significant spinal canal stenosis. Facet join t arthropathy with severe bilateral neural foraminal stenosis. No significant spinal canal or neural foraminal stenosis in the remainder of the visualized levels. Other findings: None. IMPRESSION: 1. L4-L5 moderate to severe spinal canal stenosis. 2. Multilevel degeneration changes with neural foraminal stenosis worse at L5-S1 with severe bilater al, moderate to severe left and moderate right L4-L5 and moderate bilateral L3-L4 3. Grade 1 anterolisthesis of L4 on L5.
== END | disposition home or self-care (01) ==
LOC: RADMRIMAIN 17:20
PROVIDERS: ATTEND Orthopaedic Surgery
DX: M48.061 Spinal stenosis, lumbar region without neurogenic claudication (principal); M47.816 Spondylosis without myelopathy or radiculopathy, lumbar region; M99.73 Connective tissue and disc stenosis of intervertebral foramina of lumbar region; M43.16 Spondylolisthesis, lumbar region
CPT/HCPCS: 72148

== ENCOUNTER → 2024-01-09 | Outpatient (CLI) | payer MEDICARE, OTHER ==
--- NOTE | 2024-01-11 10:26 | MM ---
Reason for Exam: Screening (asymptomatic). Last mammogram was performed 1 year(s) and 4 month(s) ago. Patient History: Menarche at age 12. First Full-Term at age 39. Late child-bearing (after 30). Postmenopausal. Risk Values: Krystyna 5 year model risk: 2.2%. NCI Lifetime model risk: 8.9%. Prior Study Comparison: 08/01/2017 Bilateral Diagnostic Mammogram, [facility]. 06/12/2020 Bilateral Screening Mammogram, [facility]. 09/15/2022 Bilateral MG 3D screening mammo w/cad, [facility]. Tissue Density: The breasts are heterogeneously dense, which may obscure small masses. Findings: Analyzed By CAD. Right breast: There is no suspicious group of microcalcifications or new suspicious mass. Left breast: There is no suspicious group of microcalcifications or new suspicious mass. Overall Assessment: Negative, BI-RAD 1 Management: Screening Mammogram of both breasts in [address] [facility] will attempt to contact patient to return for supplemental views and ultrasound if indicated. Patient should continue monthly self-breast exams. A clinical breast exam by your physician is recommended on an annual basis. This exam should not preclude additional follow-up of suspicious palpable abnormalities. Note on Krystyna scores and lifetime risk: 1. A Krystyna score greater than 3% is considered moderate risk. If this is the case, consider specialist referral to assess eligibility for a risk reducing agent. 2. If overall lifetime risk for the development of breast cancer is 20% or higher, the patient may qualify for future screening with alternating mammogram and breast MRI. [facility], , 01/11/2024 10:22 AM. Electronically signed and approved by: Grzegorz Ro DO
== END | disposition home or self-care (01) ==
LOC: RADMAMWWP 13:17
PROVIDERS: ATTEND Family Medicine
CPT/HCPCS: 77063; 77067

== ENCOUNTER → 2024-08-16 | Outpatient (CLI) | payer MEDICARE, OTHER ==
--- NOTE | 2024-08-16 14:45 | MR ---
EXAMINATION TYPE: MR lumbar spine wo con DATE OF EXAM: 08/16/2024 12:07 PM COMPARISON: 02/28/2023 CLINICAL INDICATION: Female, 64 years old with history of Z98.1 ARTHROSESIS STATUS, Low back pain int o rt leg, Weakness TECHNIQUE: Multiplanar, multisequence images of the lumbar spine were acquired. IV Contrast: mL (None, if empty) FINDINGS: There is been interval placement of pedicle screws in disc spacer at the L4-5 level. Cord ends at the L1-L2 level. L5-S1: No focal disc herniation or significant disc bulge. No spinal canal stenosis. Neural foramen are patent. L4-L5: No focal disc herniation or significant disc bulge. No spinal canal stenosis. Neural foramen are patent. Susceptibility artifact is mild limitation. No obvious stenosis or foraminal narrowing i s identified. L3-L4: There is a left paracentral small subligamentous disc herniation with mild anterior thecal sac compression. Facet hypertrophy is present. No spinal canal stenosis is present neural foramen are pa tent. L2-L3: No focal disc herniation or significant disc bulge. No spinal canal stenosis. Neural foramen are patent. L1-L2: No focal disc herniation or significant disc bulge. No spinal canal stenosis. Neural foramen are patent. T12-L1: No focal disc herniation or significant disc bulge. No spinal canal stenosis. Neural forame n are patent. Facet hypertrophy has mild posterior lateral thecal sac compression greater on the rig ht. No stenosis or cord contact is evident. T10-11: Sagittal plane there is some anterior thecal sac compression which may be from disc bulging. Some posterior lateral thecal sac compression is present on the right. Consider additional workup of this level with thoracic MRI. Some stenosis or cord contact may be present. IMPRESSION: 1. Postsurgical changes L4-5 without residual stenosis evident. 2. Subligamentous disc herniation L3-4 left paracentral region with mild anterior thecal sac compress ion 3. Some disc bulging and posterior thecal sac compression identified in the sagittal plane at the T10 -11 level. Additional evaluation with MRI at this level may be useful. [facility], Workstation: [facility], 08/16/2024 2:43 PM
== END | disposition home or self-care (01) ==
LOC: RADMRIMAIN 11:17
PROVIDERS: ATTEND Orthopaedic Surgery
DX: M51.26 Other intervertebral disc displacement, lumbar region (principal); M51.24 Other intervertebral disc displacement, thoracic region; Z98.1 Arthrodesis status
CPT/HCPCS: 72148

== ENCOUNTER → 2024-11-21 | Outpatient (CLI) | payer MEDICARE, OTHER ==
--- NOTE | 2024-11-21 16:31 | CTL ---
EXAMINATION TYPE: CT Low Dose Lung DATE OF EXAM ORDERED: 11/21/2024 COMPARISON: None CLINICAL INDICATION: Female, 64 years old with history of Z12.2, F17.210; PHH, HISTORY OF SMOKING, Marva ng cancer screening, History of Smoking/tobacco use. TECHNIQUE: Low dose computed tomography scan was performed through the chest at 1 mm thick sections a nd reconstructed images in multiple planes at 1 mm and [address] DLP: 154.[address] CTDI: 4.1 mGy Automated exposure control for dose reduction was used. CT DIAGNOSTIC QUALITY: Satisfactory Findings: There is a 2.4 cm area of groundglass opacity with cyst formation in the right lower lobe. There is no airspace consolidation. There is mild pleural-parenchymal scarring in the right middle lobe and to a lesser extent the lingul a.. There is no pleural effusion or pneumothorax. The great vessels and heart are normal in size. There is no mediastinal, hilar or axillary adenopathy. Limited scanning through the upper abdomen reveals no gross abnormality. There are no focal osseous lesions. IMPRESSION: 1. Lung RADS category 3, probably benign. Follow-up right lower lobe groundglass opacity with CT thor ax in 6 months. 2. Mild chronic interstitial changes in the right middle lobe and lingula. [facility], , 11/21/2024 4:28 PM
--- NOTE | 2024-11-21 19:46 | BD ---
EXAMINATION TYPE: Axial Bone Density DATE OF EXAM: 11/21/2024 CLINICAL HISTORY: 64 years old Female. ICD-10 CODE: Z78.0 ASYMPTOMATIC MENOPAUSAL STATE , Additional History: Height: 5 ft 1 in Weight: 185 FRAX RISK QUESTIONS: Alcohol (3 or more units per day): no Family History (Parent hip fracture): no Glucocorticoids (More than 3mos): no (Ex: prednisone, prednisolone, methylprednisolone, dexamethasone, and hydrocortisone). History of Fracture in Adulthood: yes Secondary Osteoporosis: 1. Type 1 Diabetes: no 2. Hyperthyroidism: no 3. Menopause before 45: no 4. Malnutrition: no 5. Chronic liver disease: no Rheumatoid Arthritis: no Current Tobacco Use: yes RISK FACTORS HISTORY OF: Surgery to Spine/Hip(right/left)/Wrist (right/left): lumbar surg x 3 When: MEDICATIONS: Thyroid Medications: none Osteoporosis Medications: none EXAM MEASUREMENTS: Bone mineral density about the R hip (g/cm2): 0.828 Bone mineral density about the L hip (g/cm2): 0.817 T Score values are as follows: -----R Neck: -1.5 -----L Neck: -1.6 -----R Total: -1.2 -----L Total: -0.5 Z Score values are as follows: -----R Neck: -0.4 -----L Neck: -0.5 -----R Total: -0.4 -----L Total: 0.2 baseline Bone mineral density about the L Wrist (g/cm2): 0.526 T Score values are as follows: -----Dist. R+U: -3.2 -----Prox. R+U: -2.1 -----Radius total: -2.5 Z Score values are as follows: -----Dist. R+U: -1.8 -----Prox. R+U: -0.7 -----Radius total: -1.1 baseline FRAX%s: The graph provided illustrates a 14.4 % chance for a major osteoporotic fx and a 2.7 % chance for the hips probability for fx in 10 years time. IMPRESSION: Osteopenia (T Score between -2.5 and -1). There is slightly increased risk of fracture and the patient may be considered for treatment. Re-Screen 2-5 years. NOTE: T-SCORE=SD OF THE YOUNG ADULT MEAN. [facility], , 11/21/2024 7:44 PM
== END | disposition home or self-care (01) ==
LOC: RADBDWWP 15:11
PROVIDERS: ATTEND Family Medicine
DX: Z12.2 Encounter for screening for malignant neoplasm of respiratory organs (principal); Z78.0 Asymptomatic menopausal state; F17.210 Nicotine dependence, cigarettes, uncomplicated; M85.89 Other specified disorders of bone density and structure, multiple sites; J84.9 Interstitial pulmonary disease, unspecified
CPT/HCPCS: 71271; 77080